=== PATIENT | female | born 1950 | race Caucasian/White ===

== ENCOUNTER 2021-04-13 05:56 | Day surgery (SDC) | payer MEDICARE, OTHER ==
[~2021-04-13] VITALS: Ht 160 cm; Wt 113.6 kg
[~2021-04-13 05:56] MED LIST: ACIPHEX20 MG PO; LEVOTHYROXINE137 MCG PO; LISINOPRIL10 MG PO; TOPROL XL25 MG PO; VIVELLE-DOT1 EAC1 TD
--- NOTE | 2021-04-13 09:53 | NUR ---
04/13/21 0953 Alesia Muse 0938 PATIENT ARRIVES TO PACU AWAKE BUT DROWSY. RESP EVEN AND UNLABORED, MASK AT 6 LITERS. DENIES PAIN OR NAUSEA. 0945 PATIENT AWAKE. DENTURES BACK IN MOUTH. MASK OFF. RESP EVEN AND UNLABORED, FOLLOWS COMMANDS TO DEEP BREATHE AND COUGH, ROOM AIR SATS >90%.
--- NOTE | 2021-04-13 10:23 | NUR ---
1010: PT ARRIVES TO DAY SURGERY FROM PACU ON STRETCHER. BEDSIDE REPORT RECEIVED AND CARE ASSUMED. VSS, RESP EVEN AND UNLABORED. MINIMAL DRAINAGE FROM NOSE NOTED. DENIES PAIN AND NAUSEA. SCDS IN PLACE. 1020: PT WITH URGE TO VOID. DANGLES AT THE BEDSIDE, ISAMAR WELL. DENIES DIZZINESS AND SOB. AMBULATES TO THE BR WITH THIS RN STANDBY ASSIST. STEADY GAIT. SUCCESSFUL POST OP VOID. BACK TO ROOM 5. COMFORTABLE WITHOUT NEEDS. CALL LIGHT WITHIN REACH. ICE WATER AND JELLO PROVIDED
--- NOTE | 2021-04-13 11:20 | NUR ---
1110: PT RESTING IN BED WATCHING TV WITH SPOUSE AT BEDSIDE. PT DENIES ANY SINUS PAIN, STATES "MY THROAT HURTS A LITTLE BIT, BUT THAT'S ABOUT IT... I AM READY TO GET OUT OF HERE." VSS AND IV REMOVED AT THIS TIME. PT UP TO BATHROOM WITH STEADY GAIT. ENCOURAGED TO OPEN CURTAIN WHEN DRESSED.
--- NOTE | 2021-04-13 11:53 | NUR ---
[id number]: DC INSTRUCTIONS PRESENTED TO PT AND SPOUSE, PT HAS SEVERAL QUESTIONS AND STATES THAT SHE WILL CALL DR. DIXNO'S OFFICE THIS AFTERNOON. PT DC FROM DS RM 5 VIA WC TO PERSONAL VEHICLE TO HOME WITH SPOUSE.
--- NOTE | 2021-04-15 15:04 | PATH ---
[facility] [address] [place], [place] [address] Signed SPECIMEN(S): A LEFT ETHMOID CONTENTS SPECIMEN SOURCE: A. LEFT ETHMOID CONTENTS CLINICAL HISTORY: Chronic otitis externa. Chronic sinusitis / sinonasal polyposis. FINAL PATHOLOGIC DIAGNOSIS: Left ethmoid sinus contents, excision: - Chronic sinusitis. - Minute sinonasal inflammatory polyp. NAL:cml:C2NR MICROSCOPIC EXAMINATION: Histologic sections of all submitted blocks are examined by light microscopy. These findings, together with the gross examination, support the pathologic diagnosis. GROSS DESCRIPTION: The specimen, labeled "LM," and designated on the requisition "left ethmoid contents," is received in formalin and consists of three fragments of pink-scott soft tissue (0.5 - 0.7 cm in greatest dimension, and 0.7 x 0.7 x 0.4 cm). The specimen is submitted entirely in cassette A1. AC (under the direct supervision of a pathologist) The Gross Description was prepared using a voice recognition system. The report was reviewed for accuracy; however, sound-alike word errors, addition and/or deletions may occur. If there is any question about this report, please contact Client Services. PERFORMING LABORATORY: The technical component was performed by [facility], [address] [place] [id number] (Various Exceptionalities Teacher: Syhanne Garcia MD; CLIA# [id number]). [facility] [address] [address] (CLIA# [id number]). Diagnostician: Sara Vang MD Pathologist Electronically Signed 04/15/2021 PATIENT NAME: ANISH WALSH PATHOLOGY DATE OF : 54 REPORT #: [id number] PHYSICIAN: [facility] PCP: CHRISTEL AGUIRRE NP REPORT IS CONFIDENTIAL AND NOT TO BE RELEASED WITHOUT AUTHORIZATION [address] [address] Signed Copies: ~ PATIENT NAME: ANISH WALSH PATHOLOGY DATE OF : 54 REPORT #: [id number] PHYSICIAN: [facility] PCP: CHRISTEL AGUIRRE RETAIL SUPPORT SPECIALIST REPORT IS CONFIDENTIAL AND NOT TO BE RELEASED WITHOUT AUTHORIZATION
--- NOTE | 2021-04-20 10:57 | OR ---
[facility] [address] [place], [place] [address] Signed DATE OF OPERATION: 04/13/2021 SURGEON: Tomy Dixon MD LOCATION: [facility] Outpatient Surgery. PREOPERATIVE DIAGNOSIS: Chronic left pansinusitis. POSTOPERATIVE DIAGNOSIS: Chronic left pansinusitis. PROCEDURE: Left intranasal ethmoidectomy. ANESTHESIA: General LMA; MOTEL FOOD SERVICE SUPERVISOR, Nelia. PREOPERATIVE HISTORY: Ms. Walsh is a 70-year-old lady with long history of sinus problems, unresponsive to appropriate medications. Recent CT scan has shown opacification of the left maxillary and anterior ethmoid sinuses. She is taken to the operating for the above-mentioned procedures. OPERATIVE PROCEDURE AND FINDINGS: After informed consent, the patient was taken to the operating room, placed in the supine position where general LMA anesthesia was induced. The patient received preoperative intranasal oxymetazoline and intravenous Ancef. Preop CT was viewed throughout. The nasal cavity was inspected right side with the headlight and speculum. No pathology identified. The left side was inspected. Some granular tissue high in the ethmoid area, which was removed with Arabella. Sinuses opened per CT review. The middle meatal antrostomy was made with a curving curette and widened with the Arabella. Sinus mucosa in the left maxillary sinus was slightly hypertrophic, curetted. Minimal bleeding stopped afterwards. The patient was then awakened, extubated, transported to the recovery room in good condition. COMPLICATIONS: No complications. Electronically Signed By: TOMY DIXON MD 04/20/21 1057 PATIENT NAME: ANISH WALSH OPERATIVE REPORT DATE OF : 54 REPORT #: [id number] PHYSICIAN: TOMY DIXON MD PCP: CHRISTEL AGUIRRE NP REPORT IS CONFIDENTIAL AND NOT TO BE RELEASED WITHOUT AUTHORIZATION [address] [place], [place] [address] Signed BLOOD LOSS: Minimal. SPECIMEN: To pathology. DRAINS: No drains. PACKING: No packing. Tomy Dixon MD GC/MODL /[id number] Copies: ~ Electronically Signed By: TOMY DIXON MD 04/20/21 1057 PATIENT NAME: ANISH WALSH OPERATIVE REPORT DATE OF : 54 REPORT #: [id number] PHYSICIAN: TOMY DIXON MD PCP: CHRISTEL AGUIRRE NP REPORT IS CONFIDENTIAL AND NOT TO BE RELEASED WITHOUT AUTHORIZATION
== END 2021-04-13 11:33 | disposition home or self-care (01) ==
LOC: DS 05:56 → OPS 05:56 → DS 09:00 → OPS 11:33
PROVIDERS: ATTEND Otolaryngology
PROC: 09BV0ZZ Excision of Left Ethmoid Sinus, Open Approach (ICD-10-PCS; principal; 2021-04-13 09:00)
DX: J32.4 Chronic pansinusitis (principal); J33.8 Other polyp of sinus; H60.60 Unspecified chronic otitis externa, unspecified ear; I10 Essential (primary) hypertension; E78.00 Pure hypercholesterolemia, unspecified; K21.9 Gastro-esophageal reflux disease without esophagitis; E03.9 Hypothyroidism, unspecified; E66.9 Obesity, unspecified; Z72.0 Tobacco use; Z68.44 Body mass index [BMI] 60.0-69.9, adult; Z88.5 Allergy status to narcotic agent; Z88.0 Allergy status to penicillin; Z88.2 Allergy status to sulfonamides; Z88.6 Allergy status to analgesic agent; Z88.1 Allergy status to other antibiotic agents; Z91.012 Allergy to eggs
CPT/HCPCS: 00160; 88305; J2001; J2250; J2405; J2704; J7121

== ENCOUNTER 2024-07-27 18:41 | Emergency (ER) | payer MEDICARE, OTHER ==
[~2024-07-27] VITALS: Ht 160 cm; Wt 118.6 kg
[2024-07-27] MEDS ORDERED: HYDROCHLOROTH12.5 M1 PO (19:01)
[2024-07-27 19:36] LABS: BASOPHILS 0.2 % (0-2); EOSINOPHILS 0.9 % (0-6); HEMATOCRIT 45.6 % (35.0-50.0); HEMOGLOBIN 15.1 g/dL (12.0-18.0); MCH 31.1 (27-36); NEUTROPHILS 84.9 % (39-80); PLATELET COUNT 168 K/uL (140-440); RBC 4.85 M/ul (4.3-5.7); RDW 13.9 (10.5-15.0)
[2024-07-27 19:55] LABS: ALBUMIN 3.4 g/dL (3.4-5.0); ALBUMIN/GLOBULIN RATIO 0.77 (1.1-2.4); ANION GAP 11.5 (7-21); BILIRUBIN, TOTAL 0.3 ng/dL (0.2-1.0); BUN/CREATININE RATIO 18.68 (6.0-28.6); CALCIUM 9.9 mg/dL (8.5-10.1); CREATININE, SERUM 0.91 mg/dL (0.55-1.02); POTASSIUM 4.5 mmol/L (3.5-5.1); PROTEIN, TOTAL 7.8 g/dL (6.4-8.2)
[2024-07-27] MEDS ORDERED: TRAMADOL HCL50 MG PO (20:55)
[2024-07-27] MEDS ORDERED: CELEBREX100 MG PO (20:55)
[2024-07-27] MEDS ORDERED: TRAMADOL HCL 50 MG HOME.PACK PO ONE (21:00)
[2024-07-27 21:10] VITALS: BP 154/74
--- NOTE | 2024-07-28 21:02 | EKG ---
[facility] [address] [facility] [place] [address] Signed Normal sinus rhythm Low voltage QRS Borderline ECG When compared with ECG of 07-APR-2021 14:32, No significant change was found Confirmed by Yash Taylor MD ([id number]) on 07/28/2024 9:02:47 PM Electronically Signed By: YASH TAYLOR DO 07/28/242101 PATIENT NAME: NICOANISH Electrocardiogram DATE OF : 54 PHYSICIAN: YASH TAYLOR DO REPORT #: [id number] REPORT IS CONFIDENTIAL AND NOT TO BE RELEASED WITHOUT AUTHORIZATION
== END 2024-07-27 21:10 | disposition home or self-care (01) ==
LOC: ED 18:41
PROVIDERS: Emergency Medicine
DX: M71.22 Synovial cyst of popliteal space [Baker], left knee (principal); F17.200 Nicotine dependence, unspecified, uncomplicated; X50.1XXA Overexertion from prolonged static or awkward postures, initial encounter; Z88.0 Allergy status to penicillin; Z88.1 Allergy status to other antibiotic agents; Z88.5 Allergy status to narcotic agent; Z88.8 Allergy status to other drugs, medicaments and biological substances; Z79.890 Hormone replacement therapy; Z79.899 Other long term (current) drug therapy
CPT/HCPCS: 36415; 73560; 80053; 85025; 85379; 93005; 93010; 93971; 99284; A9270